=== PATIENT | male | born 1990 | race Caucasian/White ===

== ENCOUNTER 2016-09-24 11:56 | Outpatient (CLI) | payer OTHER, BC ==
[2014-10-09 20:29] VITALS: BP 135/62
== END 2016-09-24 12:00 ==
LOC: CARD 11:56
PROVIDERS: ATTEND Nurse Practitioner
DX: I35.1 Nonrheumatic aortic (valve) insufficiency (principal); Q23.1 Congenital insufficiency of aortic valve
CPT/HCPCS: 99213

== ENCOUNTER 2018-02-28 08:05 | Outpatient (CLI) | payer OTHER ==
[2014-10-09 20:29] VITALS: BP 135/62
--- NOTE | 2018-02-28 15:53 | Diagnostic Imaging Report ---
SHEELA TORRES [facility] [id number] [address] [facility] [address] [place] [address]. [id number] Report Submission Date: Feb 28, 2018 3:36:23 PM CDT Patient Study Name: VALERIA RODARTE Date: Feb 28, 2018 9:18:13 AM CDT Modality Type: US Gender: M Description: : 89 Institution: [facility] Physician: SHEELA TORRES Examination: Ultrasound gallbladder History: RUQ for elevated liver enzymes negative exam (Hx) Findings: Sonographic evaluation of the right upper quadrant demonstrates the gallbladder without stones or sludge. Gallbladder wall measures 2.0 mm. Common bile duct measures 4.0 mm. No intrahepatic biliary dilation. Liver demonstrates normal homogeneous echogenicity. No mass or cyst. Normal flow on color analysis. Normal portal vein Doppler waveforms. Right kidney measures 11.5 cm in length. No cortical mass or cyst. No hydronephrosis. Pancreatic region without gross irregularity. Impression: No gallstone or obstruction. Unremarkable abdominal ultrasound. Electronically signed on Feb 28, 2018 3:36:23 PM CDT by: Trevin VALENZUELA
== END 2018-02-28 08:06 ==
LOC: RAD 08:05
PROVIDERS: ATTEND Physician Assistant
DX: R10.11 Right upper quadrant pain (principal); R79.89 Other specified abnormal findings of blood chemistry
CPT/HCPCS: 76705; 80074